=== PATIENT | female | born 1985 | race Caucasian/White ===

== ENCOUNTER 2017-12-14 11:31 | Emergency (ER) | payer SELFPAY ==
[~2017-12-14] VITALS: Ht 162.6 cm; Wt 99.8 kg
[2017-12-14 11:59] LABS: BILIRUBIN,URINE NEGATIVE (NEGATIVE); CLARITY,URINE CLEAR; COLOR,URINE YELLOW; GLUCOSE, URINE (UA) NEGATIVE (NEGATIVE); KETONES,URINE NEGATIVE (NEGATIVE); LEUKOCYTE ESTERASE ,URINE NEGATIVE (NEGATIVE); NITRITE,URINE NEGATIVE (NEGATIVE); PH,URINE 5 (5-9); PROTEIN,URINE NEGATIVE (NEGATIVE); UROBILINOGEN,URINE NORMAL (NORMAL)
[2017-12-14] MEDS ORDERED: NS IV 1000 ML 1,000 ML IV SCH (12:01)
[2017-12-14 12:10] LABS: BASOPHILS % (AUTO) 0 % (0-10); EOSINOPHILS # (AUTO) 0.3 10^3/uL (0.0-0.3); EOSINOPHILS % (AUTO) 2 % (0-10); HEMATOCRIT 41 % (35-52); HEMOGLOBIN 14.7 G/DL (11.5-16.0); LYMPHOCYTES % (AUTO) 28 % (12-44); MEAN CORPUSCULAR HEMOGLOBIN 31 PG (25-34); MEAN CORPUSCULAR HGB CONC 36 G/DL (32-36); MEAN CORPUSCULAR VOLUME 87 FL (80-99); MEAN PLATELET VOLUME 8.6 FL (7.4-10.4); MONOCYTES # (AUTO) 0.9 X 10^3 (0.0-1.0); MONOCYTES % (AUTO) 8 % (0-12); NEUTROPHILS # (AUTO) 6.7 X 10^3 (1.8-7.8); NEUTROPHILS % (AUTO) 62 % (42-75); PLATELET COUNT 295 10^3/uL (130-400); RED BLOOD COUNT 4.73 10^6/uL (4.35-5.85); RED CELL DISTRIBUTION WIDTH 11.9 % (10.0-14.5); WHITE BLOOD COUNT 10.8 10^3/uL (4.3-11.0)
[2017-12-14 12:13] LABS: BACTERIA,URINE FEW /HPF
[2017-12-14] MEDS ORDERED: ONDANSETRON 4 MG/2 ML (SDV) Z0FRAN IVP ONE (12:15)
[2017-12-14] MEDS ORDERED: fentaNYL INJECTION 100 MCG/2 ML AMP IVP ONE ×2 (12:15→13:45)
[2017-12-14 12:26] LABS: ALANINE AMINOTRANSFERASE 22 U/L (0-55); ALBUMIN 3.9 GM/DL (3.2-4.5); ALKALINE PHOSPHATASE 46 U/L (40-136); BILIRUBIN,TOTAL 0.5 MG/DL (0.1-1.0); BUN/CREATININE RATIO 12; CALCIUM 8.8 MG/DL (8.5-10.1); CARBON DIOXIDE 19 MMOL/L (21-32); CHLORIDE 112 MMOL/L (98-107); CREATININE SERUM 0.75 MG/DL (0.60-1.30); GFR ESTIMATED > 60; GLUCOSE 85 MG/DL (70-105); LIPASE 27 U/L (8-78); POTASSIUM 4.6 MMOL/L (3.6-5.0); SODIUM 139 MMOL/L (135-145); TOTAL PROTEIN 6.8 GM/DL (6.4-8.2)
[2017-12-14] MEDS ORDERED: IOHEXOL 350 MG/ML 100 ML (OMNIPAQUE 350) VIAL IV ONE (12:45)
[2017-12-14] MEDS ORDERED: NS 250 ML (IVPB) BAG IV ONE (12:45)
--- NOTE | 2017-12-14 13:19 | Diagnostic Imaging Report ---
PROCEDURE: CT abdomen and pelvis with contrast. TECHNIQUE: Multiple contiguous axial images were obtained through the abdomen and pelvis after administration of intravenous contrast. INDICATION: Right flank pain and pressure. No prior studies are available for comparison. FINDINGS: The lung bases are clear. The liver is unremarkable. The gallbladder is not visualized and may be surgically absent. The pancreas and spleen are unremarkable. No adrenal mass is seen. No renal calculi or hydronephrosis is identified. The aorta is nonaneurysmal. The small and large bowel loops are normal caliber. The appendix is visualized and unremarkable. The uterus and ovaries are unremarkable. There is some questionable wall thickening of the urinary bladder. Cystitis cannot be excluded. IMPRESSION: Essentially unremarkable CT of the abdomen and pelvis apart from mild bladder wall thickening, which can be seen with cystitis. No other significant abnormality is seen. Dictated by: Dictated on workstation # [id number]
--- NOTE | 2017-12-14 13:39 | ED Abdominal Pain ---
General Chief Complaint: Abdominal/GI Problems Stated Complaint: RIGHT SIDE PAIN Nursing Triage Note: pt reports r lower abdominal pain and bloating x 3 days. Sepsis Screen: No Definite Risk Source of Information: Patient Exam Limitations: No Limitations History of Present Illness Date Seen by Provider: Dec 14, 2017 Time Seen by Provider: 11:43 Initial Comments This 32-year-old young lady presents to the emergency room with complaints of right lower abdominal pain, fullness, and pressure worsening over the past 3 days. She also feels tired and achy. She has been nauseated without vomiting. She denies fever or urinary changes. She had a normal bowel movement this morning and tends to have chronic diarrhea after cholecystectomy. She uses ibuprofen frequently due to degenerative disc disease and chronic sciatica. Last visual period was November. She states it hurts to move, walk, and ride in a car. She also reports a history of ulcers. Allergies and Home Medications Allergies Coded Allergies: naproxen (Verified Allergy, Unknown, 12/14/17) Home Medications Omeprazole 20 Mg Tablet.dr, 20 MG PO BID Prescribed by: NEETU SAUER on 12/14/17 1342 Ondansetron 4 Mg Tab.rapdis, 4 MG SL Q4H PRN for NAUSEA/VOMITING-1ST LINE Prescribed by: NEETU SAUER on 12/14/17 1342 Oxycodone HCl/Acetaminophen 1 Each Tablet, 1 EACH PO Q4H PRN for PAIN-MILD TO MODERATE Prescribed by: NEETU SAUER on 12/14/17 1342 Tramadol HCl 50 Mg Tablet, 50 MG PO Q6H PRN for PAIN-MODERATE TO SEVERE Prescribed by: NEETU SAUER on 12/14/17 1342 Patient Home Medication List Home Medication List Reviewed: Yes Review of Systems Constitutional: see HPI EENTM: No Symptoms Reported Respiratory: No Symptoms Reported Cardiovascular: No Symptoms Reported Gastrointestinal: See HPI Genitourinary: No Symptoms Reported Musculoskeletal: see HPI Skin: no symptoms reported Psychiatric/Neurological: No Symptoms Reported Endocrine: No Symptoms Reported Hematologic/Lymphatic: No Symptoms Reported Past Qrmsyan-Flvvjl-Zzduej Hx Patient Social History Alcohol Use: Denies Use Recreational Drug Use: No Smoking Status: Current Everyday Smoker Type Used: Cigarettes Recent Foreign Travel: No Contact w/Someone Who Travel: No Recent Infectious Disease Expo: No Physical Abuse: No Sexual Abuse: No Mistreated: No Fear: No Surgeries History of Surgeries: Yes Surgeries: Section, Gallbladder, Tubal Ligation Respiratory History of Respiratory Disorde: No Cardiovascular History of Cardiac Disorders: No Neurological History of Neurological Disord: No Reproductive System : No [employer] History: Tubal Ligation Genitourinary History of Genitourinary Disor: No Gastrointestinal History of Gastrointestinal Di: Yes (h pylori) Gastrointestinal Disorders: Chronic Diarrhea, Ulcer Musculoskeletal History of Musculoskeletal Dis: Yes (sciatica) Musculoskeletal Disorders: Chronic Back Pain Endocrine History of Endocrine Disorders: No HEENT History of HEENT Disorders: No Cancer History of Cancer: No Psychosocial History of Psychiatric Problem: Yes Behavioral Health Disorders: Anxiety, Depression Suicide Risk Score: 0 Integumentary History of Skin or Integumenta: No Blood Transfusions History of Blood Disorders: No Physical Exam Vital Signs VS - Last 72 Hours, by Label 12/14/17 12:02 Temp 97.2 Pulse 95 Resp 20 B/P (MAP) 136/89 (105) Pulse Ox 98 Capillary Refill : Less Than 3 Seconds General Appearance: WD/WN, mild distress HEENT: PERRL/EOMI, normal ENT inspection, pharynx normal Neck: normal inspection Respiratory: lungs clear, normal breath sounds, no respiratory distress, no accessory muscle use Cardiovascular: regular rate, rhythm, no edema, no murmur Gastrointestinal: normal bowel sounds, soft, No distended, No guarding, tenderness (generalized but most prominent in the right lower quadrant), other ( positive Rovsing, positive psoas sign on the right) Extremities: normal inspection, no pedal edema Neurologic/Psychiatric: 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 as tested, no motor/sensory deficits, alert, normal mood/affect, oriented x 3 Skin: normal color, warm/dry Progress/Results/Core Measures Results/Orders Lab Results Laboratory Tests Test 12/14/17 11:50 12/14/17 12:00 Range/Units Urine Color YELLOW Urine Clarity CLEAR Urine pH 5 5-9 Urine Specific [place] 1.010 L 1.016-1.022 Urine Protein NEGATIVE NEGATIVE Urine Glucose (UA) NEGATIVE NEGATIVE Urine Ketones NEGATIVE NEGATIVE Urine Nitrite NEGATIVE NEGATIVE Urine Bilirubin NEGATIVE NEGATIVE Urine Urobilinogen NORMAL NORMAL MG/DL Urine Leukocyte Esterase NEGATIVE NEGATIVE Urine RBC (Auto) 2+ H NEGATIVE Urine RBC NONE /HPF Urine WBC 2-5 /HPF Urine Squamous Epithelial Cells 5-10 /HPF Urine Crystals NONE /LPF Urine Bacteria FEW H /HPF Urine Casts NONE /LPF Urine Mucus NEGATIVE /LPF Urine Culture Indicated NO White Blood Count 10.8 4.3-11.0 10^3/uL Red Blood Count 4.73 4.35-5.85 10^6/uL Hemoglobin 14.7 11.5-16.0 G/DL Hematocrit 41 35-52 % Mean Corpuscular Volume 87 80-99 FL Mean Corpuscular Hemoglobin 31 25-34 PG Mean Corpuscular Hemoglobin Concent 36 32-36 G/DL Red Cell Distribution Width 11.9 10.0-14.5 % Platelet Count 295 130-400 10^3/uL Mean Platelet Volume 8.6 7.4-10.4 FL Neutrophils (%) (Auto) 62 42-75 % Lymphocytes (%) (Auto) 28 12-44 % Monocytes (%) (Auto) 8 0-12 % Eosinophils (%) (Auto) 2 0-10 % Basophils (%) (Auto) 0 0-10 % Neutrophils # (Auto) 6.7 1.8-7.8 X 10^3 Lymphocytes # (Auto) 3.0 1.0-4.0 X 10^3 Monocytes # (Auto) 0.9 0.0-1.0 X 10^3 Eosinophils # (Auto) 0.3 0.0-0.3 10^3/uL Basophils # (Auto) 0.0 0.0-0.1 10^3/uL Sodium Level 139 135-145 MMOL/L Potassium Level 4.6 3.6-5.0 MMOL/L Chloride Level 112 H 98-107 MMOL/L Carbon Dioxide Level 19 L 21-32 MMOL/L Anion Gap 8 5-14 MMOL/L Blood Urea Nitrogen 9 7-18 MG/DL Creatinine 0.75 0.60-1.30 MG/DL Estimat Glomerular Filtration Rate > 60 BUN/Creatinine Ratio 12 Glucose Level 85 70-105 MG/DL Calcium Level 8.8 8.5-10.1 MG/DL Total Bilirubin 0.5 0.1-1.0 MG/DL Aspartate Amino Transf (AST/SGOT) 17 5-34 U/L Alanine Aminotransferase (ALT/SGPT) 22 0-55 U/L Alkaline Phosphatase 46 40-136 U/L Total Protein 6.8 6.4-8.2 GM/DL Albumin 3.9 3.2-4.5 GM/DL Lipase 27 8-78 U/L Serum Test, Qualitative NEGATIVE NEGATIVE My Orders Orders - NEETU OSBORNE MD Ua Culture If Indicated (12/14/17 11:43) Cbc With Automated Diff (12/14/17 12:01) Comprehensive Metabolic Panel (12/14/17 12:01) Hcg,Qualitative Serum (12/14/17 12:01) Lipase (12/14/17 12:01) Saline Lock/Iv-Start (12/14/17 12:01) Ns Iv 1000 Ml (Sodium Chloride 0.9%) (12/14/17 12:01) Ondansetron Injection (Zofran Injectio (12/14/17 12:15) Fentanyl Injection (Sublimaze Injection (12/14/17 12:15) Ct Abdomen/Pelvis W (12/14/17 12:33) Iohexol Injection (Omnipaque 350 Mg/Ml 1 (12/14/17 12:45) Ns (Ivpb) (Sodium Chloride 0.9%) (12/14/17 12:45) Urine Culture (12/14/17 13:23) Promethazine Injection (Phenergan Injec (12/14/17 13:45) Fentanyl Injection (Sublimaze Injection (12/14/17 13:45) Medications Given in ED Current Medications Medications Dose Ordered Sig/Rebecca Route Start Time Stop Time Status Last Admin Dose Admin Fentanyl Citrate 50 mcg ONCE ONCE IVP 12/14/17 12:15 12/14/17 12:16 DC 12/14/17 12:20 50 MCG Fentanyl Citrate 50 mcg ONCE ONCE IVP 12/14/17 13:45 12/14/17 13:46 DC 12/14/17 13:49 50 MCG Iohexol 100 ml ONCE ONCE IV 12/14/17 12:45 12/14/17 13:03 DC 12/14/17 13:11 100 ML Ondansetron HCl 8 mg ONCE ONCE IVP 12/14/17 12:15 12/14/17 12:16 DC 12/14/17 12:20 8 MG Promethazine HCl 25 mg ONCE ONCE IVP 12/14/17 13:45 3/5/18 13:46 DC 12/14/17 13:49 25 MG Sodium Chloride 250 ml ONCE ONCE IV 12/14/17 12:45 12/14/17 13:03 DC 12/14/17 13:11 80 ML Vital Signs/I&O Vital Sign - Last 12Hours 12/14/17 12:02 Temp 97.2 Pulse 95 Resp 20 B/P (MAP) 136/89 (105) Pulse Ox 98 Blood Pressure Mean: 105 Progress Note #1: Time: 12:35 Progress Note Lab workup was unremarkable. Due to positive Rovsing sign, so as sign, and tenderness in the right lower quadrant, there was concern for possible appendicitis. CT scan was discussed with the patient and she agrees that further evaluation for appendicitis is appropriate and desired. CT has been ordered. Progress Note #2: Time: 13:[address] scan was relatively unremarkable. Patient's pain and nausea is rebounding. Phenergan and fentanyl have been ordered. I discussed seeking further evaluation with endoscopy. Patient is going to follow-up as an outpatient. In the meantime she'll be prescribed medications to help with pain and nausea. Diagnostic Imaging Diagonstic Imaging: CT Plain Films/CT/US/NM/MRI: abdomen, pelvis Comments CT abdomen and pelvis viewed by me and report reviewed. See report below: NAME: IMAN [facility]MER [facility] REC#: [id number] PT STATUS: REG ER : 1985 PHYSICIAN: NEETU OSBORNE MD ADMIT DATE: 12/14/17/ER Draft Date of Exam:12/14/17 CT ABDOMEN/PELVIS W PROCEDURE: CT abdomen and pelvis with contrast. TECHNIQUE: Multiple contiguous axial images were obtained through the abdomen and pelvis after administration of intravenous contrast. INDICATION: Right flank pain and pressure. No prior studies are available for comparison. FINDINGS: The lung bases are clear. The liver is unremarkable. The gallbladder is not visualized and may be surgically absent. The pancreas and spleen are unremarkable. No adrenal mass is seen. No renal calculi or hydronephrosis is identified. The aorta is nonaneurysmal. The small and large bowel loops are normal caliber. The appendix is visualized and unremarkable. The uterus and ovaries are unremarkable. There is some questionable wall thickening of the urinary bladder. Cystitis cannot be excluded. IMPRESSION: Essentially unremarkable CT of the abdomen and pelvis apart from mild bladder wall thickening, which can be seen with cystitis. No other significant abnormality is seen. Dictated on workstation # [id number] Dict: 12/14/17 1314 Trans: 12/14/17 1318 KARINA [id number] Interpreted by: MICAELA BASS MD Departure Impression Impression: Primary Impression: Right lower quadrant pain Additional Impression: Nausea Disposition: 01 HOME, SELF-CARE Condition: Improved Departure-Patient Inst. Decision time for Depature: 13:35 Referrals: TAMI QUICK DO (PCP/Family) Primary Care Physician Patient Instructions: Acute Abdomen (Belly Pain), Adult (DC) Add. Discharge Instructions: Change your antacid medication to omeprazole 20 mg twice daily. Take this every day. Use Zofran (ondansetron) as prescribed for nausea and vomiting. Avoid use of NSAID medications such as ibuprofen and naproxen. As an alternative, use the Ultram (tramadol) as prescribed for mild to moderate pain and Percocet (oxycodone) for more severe pain. Follow-up with your primary care provider soon as possible. Discuss possible referral to a surgeon or diplomatic courier for endoscopy. Return to care if symptoms worsen. Avoid the following: Eating large meals, eating close to bedtime, caffeine, carbonation, chocolate, citrus fruits and juices, alcohol, tobacco, tomato products, mints, NSAID medications, fatty or greasy foods, spicy foods, or anything else you know irritates your stomach. All discharge instructions reviewed with patient and/or family. Voiced understanding. Scripts Tramadol HCl (Ultram) 50 Mg Tablet 50 MG PO Q6H Y for PAIN-MODERATE TO SEVERE, #10 TAB Prov: NEETU OSBORNE MD 12/14/17 Oxycodone HCl/Acetaminophen (Percocet 5-325 mg Tablet) 1 Each Tablet 1 EACH PO Q4H Y for PAIN-MILD TO MODERATE, #10 TAB Prov: NEETU OSBORNE MD 12/14/17 Ondansetron (Zofran Odt) 4 Mg Tab.rapdis 4 MG SL Q4H Y for NAUSEA/VOMITING-1ST LINE, #10 TAB Prov: NEETU OSBORNE MD 12/14/17 Omeprazole (Omeprazole) 20 Mg Tablet. 20 MG PO BID, #60 TAB Prov: NEETU OSBORNE MD 12/14/17 NEETU OSBORNE MD Dec 14, 2017 13:39
[2017-12-14] MEDS ORDERED: OMEP20TA7 PO (13:42)
[2017-12-14] MEDS ORDERED: ONDA4TAB8 SL (13:42)
[2017-12-14] MEDS ORDERED: OXYC-197 PO (13:42)
[2017-12-14] MEDS ORDERED: TRAM-42 PO (13:42)
[2017-12-14] MEDS ORDERED: PROMETHAZINE INJ 25 MG/ML (PHENERGAN) AMP IVP ONE (13:45)
[2017-12-14 13:57] VITALS: BP 129/74
== END 2017-12-14 13:57 | disposition home or self-care (01) ==
LOC: ER 11:34
DX: R10.31 Right lower quadrant pain (principal); R11.0 Nausea; F41.9 Anxiety disorder, unspecified; M47.9 Spondylosis, unspecified; F32.9 Major depressive disorder, single episode, unspecified; F17.210 Nicotine dependence, cigarettes, uncomplicated; Z32.02 Encounter for pregnancy test, result negative; Z87.19 Personal history of other diseases of the digestive system; Z98.51 Tubal ligation status; Z87.59 Personal history of other complications of pregnancy, childbirth and the puerperium; Z88.6 Allergy status to analgesic agent; Z90.49 Acquired absence of other specified parts of digestive tract
CPT/HCPCS: 36415; 74177; 80053; 81000; 83690; 84703; 85025; 87088

== ENCOUNTER 2018-01-02 19:34 | Emergency (ER) | payer SELFPAY ==
[~2018-01-02] VITALS: Ht 162.6 cm; Wt 99.8 kg
[~2018-01-02 19:34] MED LIST: OMEP20TA7 PO; ONDA4TAB8 SL; OXYC-197 PO; TRAM-42 PO
--- NOTE | 2018-01-02 20:16 | ED Psychosocial ---
General Chief Complaint: General Problems/Pain Stated Complaint: ANXIETY Nursing Triage Note: patient reports starting new medication and feeling very anxious and jumpy. Source: patient, spouse Exam Limitations: no limitations History of Present Illness Date Seen by Provider: Jan 02, 2018 Allergies and Home Medications Allergies Coded Allergies: naproxen (Verified Allergy, Severe, anaphylactic reaction, 01/02/18) indomethacin (Verified Allergy, Intermediate, angio-edema, 01/02/18) Home Medications Omeprazole 20 Mg Tablet.dr, 20 MG PO BID Prescribed by: NEETU SAUER on 12/14/17 1342 Ondansetron 4 Mg Tab.rapdis, 4 MG SL Q4H PRN for NAUSEA/VOMITING-1ST LINE Prescribed by: NEETU SAUER on 12/14/17 1342 Oxycodone HCl/Acetaminophen 1 Each Tablet, 1 EACH PO Q4H PRN for PAIN-MILD TO MODERATE Prescribed by: NEETU SAUER on 12/14/17 1342 Tramadol HCl 50 Mg Tablet, 50 MG PO Q6H PRN for PAIN-MODERATE TO SEVERE Prescribed by: NEETU SAUER on 12/14/17 1342 Past Vwqphbb-Ydiokt-Qhqlve Hx Patient Social History Alcohol Use: Denies Use Recreational Drug Use: No Smoking Status: Current Everyday Smoker Type Used: Cigarettes Recent Foreign Travel: No Contact w/Someone Who Travel: No Recent Infectious Disease Expo: No Surgeries History of Surgeries: Yes Surgeries: Section, Gallbladder, Tubal Ligation Respiratory History of Respiratory Disorde: No Cardiovascular History of Cardiac Disorders: No Neurological History of Neurological Disord: No Reproductive System DIALYSIS TECH History: Tubal Ligation Genitourinary History of Genitourinary Disor: No Gastrointestinal History of Gastrointestinal Di: Yes (h pylori) Gastrointestinal Disorders: Chronic Diarrhea, Ulcer Musculoskeletal History of Musculoskeletal Dis: Yes (sciatica) Musculoskeletal Disorders: Chronic Back Pain Endocrine History of Endocrine Disorders: No HEENT History of HEENT Disorders: No Cancer History of Cancer: No Psychosocial History of Psychiatric Problem: Yes Behavioral Health Disorders: Anxiety, Depression Integumentary History of Skin or Integumenta: No Blood Transfusions History of Blood Disorders: No Physical Exam Vital Signs Vital Signs - First Documented 01/02/18 19:42 Temp 98.2 Pulse 95 Resp 18 B/P (MAP) 141/84 (103) Pulse Ox 99 Capillary Refill : Less Than 3 Seconds Progress/Results/Core Measures Results/Orders Lab Results Laboratory Tests Test 01/02/18 21:05 01/02/18 22:11 Range/Units White Blood Count 17.1 H 4.3-11.0 10^3/uL Red Blood Count 4.70 4.35-5.85 10^6/uL Hemoglobin 14.5 11.5-16.0 G/DL Hematocrit 40 35-52 % Mean Corpuscular Volume 85 80-99 FL Mean Corpuscular Hemoglobin 31 25-34 PG Mean Corpuscular Hemoglobin Concent 36 32-36 G/DL Red Cell Distribution Width 12.0 10.0-14.5 % Platelet Count 345 130-400 10^3/uL Mean Platelet Volume 8.6 7.4-10.4 FL Neutrophils (%) (Auto) 60 42-75 % Lymphocytes (%) (Auto) 30 12-44 % Monocytes (%) (Auto) 9 0-12 % Eosinophils (%) (Auto) 1 0-10 % Basophils (%) (Auto) 0 0-10 % Neutrophils # (Auto) 10.3 H 1.8-7.8 X 10^3 Lymphocytes # (Auto) 5.2 H 1.0-4.0 X 10^3 Monocytes # (Auto) 1.5 H 0.0-1.0 X 10^3 Eosinophils # (Auto) 0.1 0.0-0.3 10^3/uL Basophils # (Auto) 0.0 0.0-0.1 10^3/uL Neutrophils % (Manual) 62 % Lymphocytes % (Manual) 34 % Monocytes % (Manual) 3 % Eosinophils % (Manual) 1 % Basophils % (Manual) 0 % Band Neutrophils 0 % Blood Morphology Comment NORMAL D-Dimer < 0.27 0.00-0.49 UG/ML Sodium Level 139 135-145 MMOL/L Potassium Level 3.8 3.6-5.0 MMOL/L Chloride Level 109 H 98-107 MMOL/L Carbon Dioxide Level 21 21-32 MMOL/L Anion Gap 9 5-14 MMOL/L Blood Urea Nitrogen 10 7-18 MG/DL Creatinine 0.69 0.60-1.30 MG/DL Estimat Glomerular Filtration Rate > 60 BUN/Creatinine Ratio 14 Glucose Level 93 70-105 MG/DL Calcium Level 8.9 8.5-10.1 MG/DL Total Bilirubin 0.4 0.1-1.0 MG/DL Aspartate Amino Transf (AST/SGOT) 15 5-34 U/L Alanine Aminotransferase (ALT/SGPT) 23 0-55 U/L Alkaline Phosphatase 55 40-136 U/L Troponin I < 0.30 <0.30 NG/ML C-Reactive Protein High Sensitivity 0.07 0.00-0.50 MG/DL Total Protein 6.5 6.4-8.2 GM/DL Albumin 4.0 3.2-4.5 GM/DL TSH [place] Testing 1.90 0.35-4.94 UIU/ML Urine Color YELLOW Urine Clarity CLEAR Urine pH 7 5-9 Urine Specific [place] 1.010 L 1.016-1.022 Urine Protein NEGATIVE NEGATIVE Urine Glucose (UA) NEGATIVE NEGATIVE Urine Ketones NEGATIVE NEGATIVE Urine Nitrite NEGATIVE NEGATIVE Urine Bilirubin NEGATIVE NEGATIVE Urine Urobilinogen NORMAL NORMAL MG/DL Urine Leukocyte Esterase NEGATIVE NEGATIVE Urine RBC (Auto) NEGATIVE NEGATIVE Urine RBC NONE /HPF Urine WBC RARE /HPF Urine Squamous Epithelial Cells 0-2 /HPF Urine Crystals NONE /LPF Urine Bacteria NEGATIVE /HPF Urine Casts NONE /LPF Urine Mucus NEGATIVE /LPF Urine Culture Indicated NO My Orders Orders - MEL HERNANDEZ Cbc With Automated Diff (01/02/18 20:59) Comprehensive Metabolic Panel (01/02/18 20:59) Hs C Reactive Protein (01/02/18 20:59) Fibrin Degradation Products (01/02/18 20:59) Thyroid Analyzer (01/02/18 20:59) Troponin I (01/02/18 20:59) Ua Culture If Indicated (01/02/18 20:59) Saline Lock/Iv-Start (01/02/18 20:59) Ekg Tracing (01/02/18 20:59) Chest 1 View, Ap/Pa Only (01/02/18 20:59) Ns Iv 1000 Ml (Sodium Chloride 0.9%) (01/02/18 20:59) Ondansetron Injection (Zofran Injectio (01/02/18 21:00) Famotidine Injection (Pepcid Injection) (01/02/18 20:59) Diphenhydramine Injection (Benadryl Inje (01/02/18 20:59) Methylprednisolone Sod Succ (Solu-Medrol (01/02/18 20:59) Lorazepam Injection (Ativan Injection) (01/02/18 21:15) Manual Differential (01/02/18 21:05) Medications Given in ED Current Medications Medications Dose Ordered Sig/Rebecca Route Start Time Stop Time Status Last Admin Dose Admin Lorazepam 1 mg ONCE ONCE IVP 01/02/18 21:15 01/02/18 21:16 DC 01/02/18 21:30 1 MG Ondansetron HCl 4 mg ONCE ONCE IVP 01/02/18 21:00 01/02/18 21:03 DC 01/02/18 21:30 4 MG Sodium Chloride 1,000 ml @ 0 mls/hr Q0M ONCE IV 01/02/18 20:59 01/02/18 21:03 DC 01/02/18 21:30 0 MLS/HR Vital Signs/I&O Vital Sign - Last 12Hours 01/02/18 19:42 Temp 98.2 Pulse 95 Resp 18 B/P (MAP) 141/84 (103) Pulse Ox 99 Blood Pressure Mean: 103 Departure Impression Impression: Primary Impression: Allergic reaction caused by a drug Additional Impression: Anxiety and depression Disposition: 01 HOME, SELF-CARE Condition: Improved Departure-Patient Inst. Decision time for Depature: 21:54 Referrals: ZENAIDA VUONG APRN (PCP/Family) Primary Care Physician Patient Instructions: Anaphylaxis (DC), Angioedema (DC), Drug Allergy Add. Discharge Instructions: All discharge instructions reviewed with patient and/or family. Voiced understanding. Medications as instructed. Stop the Zoloft and indomethacin. Continue the prednisone. Your family practitioner may want to restart his Zoloft once your symptoms have resolved. Take Benadryl [id number] as directed for allergy symptoms. Take pepcid (famotidine) over the counter 20 mg by mouth twice daily for the allergic reaction. Follow-up with [facility] tomorrow for a recheck as an outpatient. Follow-up with Zenaida Vuong APRN this week for recheck and medication adjustments. Call for appointment time Thursday. Return to the emergency department for worsened symptoms, difficulty swallowing, difficulty breathing, shortness of air , chest pain, headache, dizziness, changes in vision, swelling, or any other concerns. Scripts Epinephrine (Epipen 2-Eleazar) 0.3 Mg/0.3 Ml Auto.injct 0.3 MG IJ UD Y for SHORTNESS OF BREATH, #1 PACKET 0 Refills Prov: MEL HERNANDEZ 01/02/18 Alprazolam (Xanax) 0.25 Mg Tablet 0.25 MG PO Q6H Y for ANXIETY, #10 TAB 0 Refills Prov: MEL HERNANDEZ 01/02/18 EML HERNANDEZ Jan 02, 2018 20:15
[2018-01-02] MEDS ORDERED: methylPREDNISolone 125 MG (Solu-MEDROL) VIAL IV STA (20:59)
[2018-01-02] MEDS ORDERED: NS IV 1000 ML 1,000 ML IV ONE (20:59)
[2018-01-02] MEDS ORDERED: diphenhydrAMINE 50 MG/ML INJ (BENADRYL) IV STA (20:59)
[2018-01-02] MEDS ORDERED: FAMOTIDINE 20MG/2ML IV (PEPCID) IV STA (20:59)
[2018-01-02] MEDS ORDERED: ONDANSETRON 4 MG/2 ML (SDV) Z0FRAN IVP ONE (21:00)
[2018-01-02] MEDS ORDERED: LORazepam INJ 2 MG/ML (ATIVAN) VIAL IVP ONE (21:15)
[2018-01-02 21:17] LABS: BASOPHILS % (AUTO) 0 % (0-10); EOSINOPHILS # (AUTO) 0.1 10^3/uL (0.0-0.3); EOSINOPHILS % (AUTO) 1 % (0-10); HEMATOCRIT 40 % (35-52); HEMOGLOBIN 14.5 G/DL (11.5-16.0); LYMPHOCYTES # (AUTO) 5.2 X 10^3 (1.0-4.0); LYMPHOCYTES % (AUTO) 30 % (12-44); MEAN CORPUSCULAR HEMOGLOBIN 31 PG (25-34); MEAN CORPUSCULAR HGB CONC 36 G/DL (32-36); MEAN CORPUSCULAR VOLUME 85 FL (80-99); MEAN PLATELET VOLUME 8.6 FL (7.4-10.4); MONOCYTES # (AUTO) 1.5 X 10^3 (0.0-1.0); MONOCYTES % (AUTO) 9 % (0-12); NEUTROPHILS # (AUTO) 10.3 X 10^3 (1.8-7.8); NEUTROPHILS % (AUTO) 60 % (42-75); PLATELET COUNT 345 10^3/uL (130-400); WHITE BLOOD COUNT 17.1 10^3/uL (4.3-11.0)
--- NOTE | 2018-01-02 21:18 | Diagnostic Imaging Report ---
INDICATION: Anxiety and allergic reaction. EXAMINATION: Single view of the chest was obtained. FINDINGS: The heart size, mediastinal configuration, and pulmonary vascularity are within normal limits. There is no pleural effusion, pneumothorax, or pneumonia. The osseous structures are unremarkable. IMPRESSION: No acute cardiopulmonary abnormality. Dictated by: Dictated on workstation # [id number]
[2018-01-02 21:35] LABS: ALANINE AMINOTRANSFERASE 23 U/L (0-55); ALKALINE PHOSPHATASE 55 U/L (40-136); BILIRUBIN,TOTAL 0.4 MG/DL (0.1-1.0); BUN/CREATININE RATIO 14; CALCIUM 8.9 MG/DL (8.5-10.1); CARBON DIOXIDE 21 MMOL/L (21-32); CHLORIDE 109 MMOL/L (98-107); CREATININE SERUM 0.69 MG/DL (0.60-1.30); GFR ESTIMATED > 60; GLUCOSE 93 MG/DL (70-105); POTASSIUM 3.8 MMOL/L (3.6-5.0); SODIUM 139 MMOL/L (135-145); TOTAL PROTEIN 6.5 GM/DL (6.4-8.2)
[2018-01-02 21:39] LABS: BAND NEUTROPHILS 0 %; BASOPHILS % (MANUAL) 0 %; EOSINOPHILS % (MANUAL) 1 %; LYMPHOCYTES % (MANUAL) 34 %; MONOCYTES % (MANUAL) 3 %; NEUTROPHILS % (MANUAL) 62 %; RBC MORPH NORMAL
[2018-01-02 22:17] LABS: BILIRUBIN,URINE NEGATIVE (NEGATIVE); CLARITY,URINE CLEAR; COLOR,URINE YELLOW; GLUCOSE, URINE (UA) NEGATIVE (NEGATIVE); KETONES,URINE NEGATIVE (NEGATIVE); LEUKOCYTE ESTERASE ,URINE NEGATIVE (NEGATIVE); NITRITE,URINE NEGATIVE (NEGATIVE); PH,URINE 7 (5-9); PROTEIN,URINE NEGATIVE (NEGATIVE); UROBILINOGEN,URINE NORMAL (NORMAL)
[2018-01-02 22:26] LABS: BACTERIA,URINE NEGATIVE /HPF; SQUAMOUS EPITHELIAL CELL,UR 0-2 /HPF; WBC,URINE RARE /HPF
[2018-01-02] MEDS ORDERED: EPIN0.3P3 IJ (22:42)
[2018-01-02] MEDS ORDERED: ALPR0.25 PO (22:42)
[2018-01-02 22:49] VITALS: BP 141/84
== END 2018-01-02 22:49 | disposition home or self-care (01) ==
LOC: EDUNIT# 19:34 → ER 19:35
DX: F41.9 Anxiety disorder, unspecified (principal); F32.9 Major depressive disorder, single episode, unspecified; T50.905A Adverse effect of unspecified drugs, medicaments and biological substances, initial encounter; F17.210 Nicotine dependence, cigarettes, uncomplicated; Z87.19 Personal history of other diseases of the digestive system; Z98.51 Tubal ligation status; Z87.59 Personal history of other complications of pregnancy, childbirth and the puerperium; Z88.6 Allergy status to analgesic agent
CPT/HCPCS: 36415; 71045; 80053; 81000; 84443; 84484; 85007; 85027; 85379; 86141; 93005